=== PATIENT | female | born 1930 | race Caucasian/White ===

== ENCOUNTER 2016-07-07 06:39 | Day surgery (SDC) | payer OTHER ==
[~2016-07-07] VITALS: Ht 154.9 cm; Wt 79.0 kg
[~2016-07-07 06:39] MED LIST: APRESOLINE50 MG PO; EFFEXOR XR150 MG PO; LISINOPRIL20 MG PO; NEPHRO-VITE,1 TABLET PO; ROCALTROL0.25 MCG PO
[2016-07-07 07:36] LABS: HEMATOCRIT 40.3 % (36.0-46.0); MCH 28.5 PG (29.0-34.0); MCHC 31.5 G/DL (30.0-36.0); MCV 90.6 FL (83-99); MEAN PLAT.VOLUME 10.5 uM^3 (9.5-12.4); PLATELET COUNT 126 K/uL (156-360); RBC DIS.WIDTH-CV 16.2 % (11.8-14.6); RBC DIS.WIDTH-SD 54.3 % (39-53); RED BLOOD COUNT 4.45 M/uL (3.80-5.20); WHITE BLOOD COUNT 5.3 K/uL (4.1-10.2)
[2016-07-07 07:39] VITALS: BP 192/96
[2016-07-07 07:45] LABS: CHLORIDE 102 mEq/L (99-109); SODIUM 139 mEq/L (136-147)
[2016-07-07 07:46] LABS: GLUCOSE 86 mg/dL (70-99)
[2016-07-07 07:48] LABS: ANION GAP 11 MEQ/L (2-14)
[2016-07-07 07:50] LABS: GFR ESTIMATE (CALCULATED) 19 mL/min/
[2016-07-07 07:51] LABS: UREA NITROGEN (BUN) 33 mg/dL (9-23)
[2016-07-07 08:29] LABS: METH RESISTANT S AUREUS PCR NEGATIVE (NEGATIVE)
[2016-07-07 08:30] LABS: PROBE CHECK PASS; SPECIMEN PROCESSING CONTROL PASS
[2016-07-07 12:10] VITALS: BP 159/77
[2016-07-07 13:10] VITALS: BP 153/74
[2016-07-07 13:45] VITALS: BP 145/83
== END 2016-07-07 14:00 | disposition home or self-care (01) ==
LOC: SDC 06:39
PROVIDERS: Surgery
PROC: 03180ZD Bypass Left Brachial Artery to Upper Arm Vein, Open Approach (ICD-10-PCS; principal; 2016-07-07)
DX: I11.9 Hypertensive heart disease without heart failure (principal); N19 Unspecified kidney failure; Z99.2 Dependence on renal dialysis; E78.5 Hyperlipidemia, unspecified
CPT/HCPCS: 80048; 85027; 87641; 93005; J0690; J1644; J2250; J2405; J2720; J3010

== ENCOUNTER 2017-05-04 08:03 | Day surgery (SDC) | payer OTHER ==
[~2017-05-04] VITALS: Ht 162.6 cm; Wt 65.8 kg
[~2017-05-04 08:03] MED LIST changes: +FERREX 150150 MG PO; +LISINOPRIL10 MG PO; +METOPROLOL TART50 MG PO; +MINOXIDIL2.5 MG PO; +RAMIPRIL10 MG PO
== END 2017-05-04 10:54 | disposition home or self-care (01) ==
LOC: CATH 08:03
DX: T82.318A Breakdown (mechanical) of other vascular grafts, initial encounter (principal); E78.00 Pure hypercholesterolemia, unspecified; N18.6 End stage renal disease; Z99.2 Dependence on renal dialysis
CPT/HCPCS: 87641; C1725; C1769; C1894; J1644; J2250; J3010